=== PATIENT | male | born 1995 ===

== ENCOUNTER 2022-04-17 11:37 | Emergency (ER) | payer SELFPAY ==
[2022-04-17 12:43] VITALS: BP 139/79
== END 2022-04-17 17:04 | disposition left against medical advice (07) ==
LOC: ED 11:37
DX: T23.009A Burn of unspecified degree of unspecified hand, unspecified site, initial encounter (principal); Z53.21 Procedure and treatment not carried out due to patient leaving prior to being seen by health care provider; X08.8XXA Exposure to other specified smoke, fire and flames, initial encounter; Y93.89 Activity, other specified; Y92.89 Other specified places as the place of occurrence of the external cause; Y99.8 Other external cause status